=== PATIENT | female | born 1995 | race Caucasian/White ===

== ENCOUNTER 2020-10-21 15:56 | Emergency (ER) | payer MEDICAID, OTHER ==
[~2020-10-21] VITALS: Ht 167.6 cm; Wt 67.8 kg
[~2020-10-21 15:56] MED LIST: GABA300C10 PO; ONDA4TAB13 PO; PREN1TAB14 PO; SERT100T PO; SERT100T32 PO
[2020-10-21 15:58] VITALS: BP 130/81
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
--- NOTE | 2020-10-21 16:36 | NUR ---
CALLED [facility] AT PT'S REQUEST. PER DISPATCH THEY WILL CALL BACK.
--- NOTE | 2020-10-21 16:47 | NUR ---
[facility] CALLED BACK WITH CASE #[id number]. STATE THEY WILL FOLLOW UP WITH PT.
--- NOTE | 2020-10-21 16:56 | NUR ---
PT GIVEN DISCHARGE EDUCATION AND INSTRUCTIONS. PT ALSO PROVIDED DOMESTIC [employer] AND SHELTERS.
== END 2020-10-21 17:06 | disposition home or self-care (01) ==
LOC: ED 17:00
DX: M54.2 Cervicalgia (principal); Y04.8XXA Assault by other bodily force, initial encounter; Y93.89 Activity, other specified; Y92.89 Other specified places as the place of occurrence of the external cause; Y99.8 Other external cause status
CPT/HCPCS: 99283

== ENCOUNTER 2020-12-27 13:05 | Emergency (ER) | payer MEDICAID ==
[~2020-12-27] VITALS: Ht 167.6 cm; Wt 65.0 kg
[2020-12-27 13:11] VITALS: BP 109/49
[2020-12-27 13:40] LABS: BASOPHILS % (AUTO) 1 % (0-1); EOSINOPHILS % (AUTO) 1 % (1-7); LYMPHOCYTES % (AUTO) 24 % (22-44); MEAN CORPUSCULAR HEMOGLOBIN 32.9 pg (27.0-34.8); MEAN CORPUSCULAR HGB CONC 34.1 g/dL (32.4-35.8); MEAN PLATELET VOLUME 7.9 fL (7.4-10.4); MONOCYTES % (AUTO) 6 % (2-9); NEUTROPHILS % (AUTO) 69 % (42-75); PLATELET COUNT 232 x10^3/uL (130-400); RED BLOOD COUNT 4.35 x10^6/uL (3.82-5.3); RED CELL DISTRIBUTION WIDTH 12.9 % (9.6-15.2)
[2020-12-27 13:41] LABS: MD NO
[2020-12-27 13:53] LABS: ALANINE AMINOTRANSFERASE 71 U/L (12-78); ALBUMIN 4.1 g/dL (3.4-5.0); ANION GAP 5 mmol/L (5-15); CALCIUM 8.6 mg/dL (8.5-10.1); CHLORIDE 107 mmol/L (98-107); CREATININE 0.79 mg/dL (0.55-1.02)
[2020-12-27 13:57] LABS: ALKALINE PHOSPHATASE 56 U/L (45-117); BILIRUBIN,TOTAL 0.5 mg/dL (0.2-1.0); TOTAL PROTEIN 7.2 g/dL (6.4-8.2)
--- NOTE | 2020-12-27 14:38 | NUR ---
CLINICAL MOLECULAR GENETICIST: CALLED FROM LOBBY NO ANSWER
--- NOTE | 2020-12-27 14:45 | NUR ---
STEEL LAYER: CALLED PT IN LOBBY, NO ANSWER
--- NOTE | 2020-12-27 14:55 | NUR ---
GROUNDS PERSON: PT WAS EATING A MEAL OUTSIDE, PT TO ROOM FROM LOBBY
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
--- NOTE | 2020-12-27 16:00 | NUR ---
PELVIC PERFORMED BY MD VERDE. RN PRESENT DURING EXAM
[2020-12-27] MEDS ORDERED: CEFTRIAXONE 1,000 MG ONE (16:13)
[2020-12-27] MEDS ORDERED: AZITHROMYCIN 500 MG TABLET ONE (16:13)
--- NOTE | 2020-12-27 16:20 | NUR ---
MEDICATE PER ORDERS.
[2020-12-27 16:25] LABS: CLUE CELLS NONE SEEN (NONE SEEN); WET PREP WBCS MODERATE (FEW)
[2020-12-27] MEDS ORDERED: CEFTRIAXONE 1,000 MG IM ONE (16:30)
[2020-12-27] MEDS ORDERED: AZITHROMYCIN 500 MG TABLET PO ONE (16:30)
[2020-12-27 16:44] LABS: MICROSCOPIC INDICATED
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
== END 2020-12-27 17:06 ==
LOC: ED 15:04
DX: R55 Syncope and collapse (principal); R11.2 Nausea with vomiting, unspecified
CPT/HCPCS: 36415; 80053; 81001; 84703; 85025; 87086; 87210; 87491; 87591; 87808; 93005; 96372; 99284; J0696